=== PATIENT | male | born 1980 | race Caucasian/White ===

== ENCOUNTER 2018-06-22 20:42 | Emergency (ER) | payer OTHER ==
[~2018-06-22] VITALS: Ht 177.8 cm; Wt 90.7 kg
[2018-06-22] MEDS ORDERED: ASPIRIN 81 MG TAB.CHEW PO ONE (21:15)
[2018-06-22 21:24] LABS: BASO % 1 % (0-3); EOS # 0.4 x10^3/uL (0.0-0.7); EOS % 5 % (0-3); HEMATOCRIT 49.4 % (39.0-53.0); HEMOGLOBIN 16.8 g/dL (13.0-17.5); LYMPH # 2.4 x10^3/uL (1.0-4.8); LYMPH % 27 % (24-48); MEAN CORPUSCULAR HEMOGLOBIN 31 pg (25-35); MEAN CORPUSCULAR HGB CONC 34 g/dL (31-37); MEAN CORPUSCULAR VOLUME 92 fL (79-100); MONO # 0.6 x10^3/uL (0.0-1.1); MONO % 6 % (0-9); NEUT # 5.7 x10^3uL (1.8-7.7); NEUT % 62 % (31-73); PLATELET COUNT 362 x10^3/uL (140-400); RED BLOOD COUNT 5.35 x10^6/uL (4.30-5.70); RED CELL DISTRIBUTION WIDTH 13.7 % (11.5-14.5); WHITE BLOOD COUNT 9.2 x10^3/uL (4.0-11.0)
[2018-06-22 21:29] LABS: CALCIUM 9.3 mg/dL (8.5-10.1); CREATININE 1.1 mg/dL (0.7-1.3); GFR 75.7; POTASSIUM 3.7 mmol/L (3.5-5.1)
--- NOTE | 2018-06-22 21:29 | ED.ADGEN ---
Past History Past Medical History: Hypertension Past Surgical History: No Surgical History Additional Smoking Information: pt chews tobacco Alcohol Use: Heavy Drug Use: None Adult General Chief Complaint Chief Complaint chest pain HPI HPI There is 37 years old male presented to the emergency department with the almost 3 weeks history of chest pain on the left side of his chest especially if he moves his left arm today his been thinking about it and was worried that this could be his heart upon arrival to the emergency department patient is pain -free Review of Systems Review of Systems Constitutional: Denies fever or chills [] Eyes: Denies change in visual acuity, redness, or eye pain [] HENT: Denies nasal congestion or sore throat [] Respiratory: Denies cough or shortness of breath [] Cardiovascular: No additional information not addressed in HPI [] GI: Denies abdominal pain, nausea, vomiting, bloody stools or diarrhea [] : Denies dysuria or hematuria [] Musculoskeletal: Denies back pain or joint pain [] Integument: Denies rash or skin lesions [] Neurologic: Denies headache, focal weakness or sensory changes [] Endocrine: Denies polyuria or polydipsia [] All other systems were reviewed and found to be within normal limits, except as documented in this note. Current Medications Current Medications Current Medications Medications (Trade) Dose Ordered Sig/Gianna Start Time Stop Time Status Last Admin Dose Admin Aspirin (Children'S Aspirin) 324 mg 1X ONCE 06/22/18 21:15 06/22/18 21:16 UNV 06/22/18 21:22 324 MG Physical Exam Physical Exam Constitutional: Well developed, well nourished, no acute distress, non-toxic appearance. [] HENT: Normocephalic, atraumatic, bilateral external ears normal, oropharynx moist, no oral exudates, nose normal. [] Eyes: PERRLA, EOMI, conjunctiva normal, no discharge. [] Neck: Normal range of motion, no tenderness, supple, no stridor. [] Cardiovascular:Heart rate regular rhythm, no murmur [] Lungs & Thorax: Bilateral breath sounds clear to auscultation []chest wall tenderness on the left side Abdomen: Bowel sounds normal, soft, no tenderness, no masses, no pulsatile masses. [] Skin: Warm, dry, no erythema, no rash. [] Back: No tenderness, no CVA tenderness. [] Extremities: No tenderness, no cyanosis, no clubbing, ROM intact, no edema. [] Neurologic: Alert and oriented X 3, normal motor function, normal sensory function, no focal deficits noted. [] Psychologic: Affect normal, judgement normal, mood normal. [] Current Patient Data Vital Signs Vital Signs Date Time Temp Pulse Resp B/P (MAP) Pulse Ox O2 Delivery O2 Flow Rate FiO2 06/22/18 20:47 97.9 81 20 99 Room Air EKG EKG No acute ischemic changes[] Radiology/Procedures Radiology/Procedures No acute findings[] Course & Med Decision Making Course & Med Decision Making Pertinent Labs and Imaging studies reviewed. (See chart for details) [] Final Impression Final Impression [] Problems: (1) Chest wall pain Dragon Disclaimer Dragon Disclaimer This electronic medical record was generated, in whole or in part, using a voice recognition dictation system. MUA DAMIAN MD Jun 22, 2018 21:29
[2018-06-22 22:10] VITALS: BP 122/66
--- NOTE | 2018-06-23 08:26 | RAD ---
PROCEDURE: PORTABLE CHEST 1V CLINICAL INDICATION: Left upper chest pain for a few days. Pain in left arm today. No prior injury or surgery COMPARISON: None FINDINGS: No pneumothorax identified. Cardiac and mediastinal contours unremarkable. No pulmonary consolidation or acute airspace disease. No acute osseous abnormalities identified. IMPRESSION: No pulmonary consolidation or acute airspace disease. Electronically signed by: Anselmo Sherman DO (06/23/2018 8:24 AM) [facility]
--- NOTE | 2018-06-24 00:40 | EKG ---
[address] [address] Test Date: 2018-06-22 Test Time: 20:51:09 Pat Name: ELEN RAYMOND Department: Room: Gender: M Assistant Housekeeping Manager: : 1980 Requested By: UMA DAMIAN Order Number: [id number] Reading MD: Robert Herbert MD Measurements Intervals Calvin Rate: 90 P: 29 NH: 164 QRS: -12 QRSD: 82 T: 28 QT: 348 QTc: 430 Interpretive Statements SINUS RHYTHM Electronically Signed On 06-26-2018 16:08:19 CDT by Robert Herbert MD
== END 2018-06-22 22:16 | disposition home or self-care (01) ==
LOC: ER 20:42
DX: R07.89 Other chest pain (principal); I10 Essential (primary) hypertension; F17.220 Nicotine dependence, chewing tobacco, uncomplicated; F10.20 Alcohol dependence, uncomplicated; Y90.9 Presence of alcohol in blood, level not specified
CPT/HCPCS: 36415; 71045; 80048; 84484; 85025; 93005; 99284